=== PATIENT | female | born 1960 | race Caucasian/White ===

== ENCOUNTER 2018-04-03 12:21 | Emergency (ER) | payer OTHER ==
[2018-04-03 12:30] VITALS: BP 142/63; PULSE 70; RESP 18; TEMP 97.1
--- NOTE | 2018-04-03 12:56 | ED ---
Upper Extremity HPI - General Chief Complaint: Extremity Injury, Upper Stated Complaint: Left Wrist Pain Time Seen by Provider: 04/03/18 12:26 Source: patient, RN notes reviewed, old records reviewed Mode of arrival: ambulatory Limitations: no limitations - History of Present Illness Initial Comments: Patient is a 57-year-old female tingling of left wrist pain. Patient poor she was walking on a dock slipped and fell and tried to catch her cell. She reports that she mainly on her left wrist and hand. She states there is swelling and some mild deformity. Patient relates that she hasn't had any previous fractures of the before. She does have normal sensation. She took Motrin prior to arrival. She does not want anything for pain at this time. Patient states that she's had no head injury or any other injury associated with the fall. - Related Data Home Medications Medication Instructions Recorded Confirmed Cetirizine HCl [Zyrtec] 10 mg PO DAILY PRN 04/03/18 04/03/18 Fluticasone Nasal [place] [Flonase 2 spr EA NOSTRIL DAILY PRN 04/03/18 04/03/18 Nasal [place]] Ibuprofen [Motrin] 800 mg PO DAILY PRN 04/03/18 04/03/18 Allergies Allergy/AdvReac Type Severity Reaction Status Date / Time sulfamethoxazole Allergy Rash/Hives Verified 04/03/18 12:35 [From Bactrim] trimethoprim [From Bactrim] Allergy Rash/Hives Verified 04/03/18 12:35 Review of Systems ROS Statement: Those systems with pertinent positive or pertinent negative responses have been documented in the HPI. ROS Other: All systems not noted in ROS Statement are negative. Past Medical History Past Medical History: No Reported History History of Any Multi-Drug Resistant Organisms: None Reported Past Surgical History: No Surgical Hx Reported Past Psychological History: No Psychological Hx Reported Smoking Status: Former smoker Past Alcohol Use History: Occasional Past Drug Use History: None Reported General Exam - General Exam Comments Initial Comments: This is a 57-year-old female. Alert and oriented. No significant distress. Limitations: no limitations Head exam: Present: atraumatic, normocephalic, normal inspection Eye exam: Present: normal appearance, PERRL, EOMI. Absent: scleral icterus, conjunctival injection, periorbital swelling ENT exam: Present: normal exam, mucous membranes moist Neck exam: Present: normal inspection. Absent: tenderness, meningismus, lymphadenopathy Respiratory exam: Present: normal lung sounds bilaterally. Absent: respiratory distress, wheezes, rales, rhonchi, stridor Cardiovascular Exam: Present: regular rate, normal rhythm, normal heart sounds. Absent: systolic murmur, diastolic murmur, rubs, gallop, clicks Left Upper Arm exam: Present: normal inspection, full ROM Elbow exam: Present: normal inspection, full ROM Forearm Wrist exam: Present: tenderness, swelling (Over distal ulna and radius) . Absent: normal inspection, full ROM Hand Wrist exam: Present: normal inspection, full ROM Neuro motor exam: Present: wrist extension intact, thumb opposition intact, thumb IP flexion intact, thumb adduction intact, fingers 2-5 abduction intact Vascular: Present: normal capillary refill Back exam: Present: normal inspection Neurological exam: Present: alert, oriented X3, CN II-XII intact Psychiatric exam: Present: normal affect, normal mood Skin exam: Present: warm, dry, intact, normal color. Absent: rash Course Vital Signs 04/03/18 12:28 Temperature 97.1 F L Pulse Rate 70 Respiratory 18 Rate Blood Pressure 142/63 O2 Sat by Pulse 98 Oximetry Procedures - Orthopedic Splinting/Casting Injury #1 Side: left Upper Extremity Injury Location: wrist Upper Extremity Immobilizer: volar splint, Landry wrap, synthetic pre-padded splint Medical Decision Making - Medical Decision Making 57-year-old field in stable left wrist pain after falling on a dock. She fell on outstretched hand. She has a slight deformity swelling of the wrist. Pain with range of motion. Patient has normal sensation and normal capillary refill. Less than 2 seconds. Patient radial pulses intact. At this time x- ray shows evidence of intra-articular radial metaphysis fracture. Patient was placed in a volar splint. Discussed giving Patient a medication she states she does not want any at this time. Discussed Motrin Tylenol for pain. She is given referral for utility specialist. Patient understands treatment plan will comply. Return parameters were discussed. - Radiology Data Radiology results: report reviewed Mildly displaced intra-articular fracture of the distal radial metaphysis. Disposition Clinical Impression: Left wrist fracture Disposition: HOME SELF-CARE Condition: Good Instructions: Wrist Fracture in Adults (ED) Additional Instructions: Patient is to take Motrin Tylenol for pain. Follow-up with utility specialist. Return to the emergency department if any alarming signs or symptoms occur. Is patient prescribed a controlled substance at d/c from ED?: No Referrals: Ja Tadeo DO [Primary Care Provider] - 1-2 days Sterling Galindo MD [Medical Doctor] - 1-2 days Time of Disposition: 14:06
--- NOTE | 2018-04-03 13:16 | XR ---
EXAMINATION TYPE: XR wrist complete LT , 4 VIEWS DATE OF EXAM ORDERED: 04/03/2018 HISTORY: Pain. COMPARISON: None. FINDINGS: There is a minimally displaced fracture of the of the distal radial metaphysis. This exten ds intra-articularly. No definite ulnar fracture is seen. IMPRESSION: MILDLY DISPLACED, INTRA-ARTICULAR FRACTURE OF THE DISTAL RADIAL METAPHYSIS. CODE A: INITIAL ENCOUNTER FOR CLOSED FRACTURE.
[2018-04-03] MEDS ORDERED: ACET/COD 300 MG/30 MG STARTER PACK 6 TAB BTL PO STA (13:35)
== END 2018-04-03 14:16 | disposition home or self-care (01) ==
LOC: EC 12:21
DX: S52.572A Other intraarticular fracture of lower end of left radius, initial encounter for closed fracture (principal); Z87.891 Personal history of nicotine dependence; Z88.2 Allergy status to sulfonamides; W01.0XXA Fall on same level from slipping, tripping and stumbling without subsequent striking against object, initial encounter; Y93.01 Activity, walking, marching and hiking
CPT/HCPCS: 29125; 99284